=== PATIENT | male | born 1945 | race Caucasian/White ===

== ENCOUNTER 2016-12-16 12:35 | Emergency (ER) | payer MEDICARE ==
[~2016-12-16] VITALS: Ht 180.3 cm; Wt 82.3 kg
--- OUTSIDE RECORDS SUMMARY | 2016-12-16 12:44 | XMS REPORT | Continuity of Care Document ---
Author Author [facility] Organization [facility] Address Unknown Phone Unavailable Allergies Active Description Code Type Severity Reaction Onset Reported/Identified Relationship to Patient Clinical Status Yes No Known Allergies 392020 3 N/A N/A Medications Problems Date Dx Coded Attending Type Code Diagnosis Diagnosed By 10/20/2015 AJITH SOOD, RITO Stephens Ot 729.81 10/26/2015 Patricia SOOD, Gregory Tapia Ot S69.81XA 10/26/2015 Patricia SOOD, Gregory Tapia Ot W20.8XXA 11/29/2015 Patricia SOOD, Gregory V Ot S69.81XA 11/29/2015 Patricia SOOD, Gregory V Ot W20.8XXA 06/21/2016 W M25.561 Acute pain of right knee Procedures Code [place] [address] X-RAY EXAM KNEE 4 OR MORE 06/21/2016 Results Encounters ACCT No. Visit Date/Time Discharge Status Pt. Type Provider Facility Loc./Unit Complaint [id number] 03/15/2013 13:26:00 2012 15:15:00 DIS Emergency Paulino SOOD, [facility] W[facility]EDS
[2016-12-16] MEDS ORDERED: LIDOCAINE 1% (XYLOCAINE) 10 ML VIAL INJ ONE (12:55)
[2016-12-16] MEDS ORDERED: methylPREDNISolone 80 MG/ML (DEPO MEDROL) VIAL IM ONE (12:55)
[2016-12-16] MEDS ORDERED: LIDOCAINE 1% (XYLOCAINE) 20 ML VIAL ONE (12:57)
[2016-12-16] MEDS ORDERED: LIDOCAINE 1% (XYLOCAINE) 20 ML VIAL INJ ONE (13:05)
[2016-12-16] MEDS ORDERED: NAPR500T3 PO (13:30)
[2016-12-16] MEDS ORDERED: ASP81CT PO (13:31)
[2016-12-16] MEDS ORDERED: SMV10T PO (13:31)
[2016-12-16] MEDS ORDERED: METF500T4 PO (13:31)
[2016-12-16] MEDS ORDERED: MELO-255 PO (13:31)
[2016-12-16 13:36] VITALS: BP 130/75
--- NOTE | 2016-12-16 13:52 | Diagnostic Imaging Report ---
INDICATION: Right hip pain. No trauma. COMPARISON: None available. TECHNIQUE: AP and frog-leg lateral views of the right hip. FINDINGS: There is no acute fracture or traumatic malalignment. Mild degenerative changes of the right hip characterized by superior joint space narrowing and marginal osteophytes in the acetabulum. Normal femoral head and neck offset. No acetabular retroversion. Left obturator ring is intact. IMPRESSION: 1. No acute osseous abnormality of the right hip. 2. Mild osteoarthritis of the right hip. Dictated by: Dictated on workstation # [id number]
== END 2016-12-16 13:37 | disposition home or self-care (01) ==
LOC: EDUNIT# 12:35 → ED 12:40
DX: M70.71 Other bursitis of hip, right hip (principal)
CPT/HCPCS: 73502; 96372; 99282; J1040; 99283

== ENCOUNTER 2016-12-17 13:51 | Emergency (ER) | payer MEDICARE ==
[~2016-12-17] VITALS: Ht 180.3 cm; Wt 81.0 kg
[~2016-12-17 13:51] MED LIST: ASP81CT PO; MELO-255 PO; METF500T4 PO; NAPR500T3 PO; SMV10T PO
--- OUTSIDE RECORDS SUMMARY | 2016-12-17 13:56 | XMS REPORT | Continuity of Care Document ---
Author Author [facility] Organization [facility] Address Unknown Phone Unavailable Allergies Active Description Code Type Severity Reaction Onset Reported/Identified Relationship to Patient Clinical Status Yes No Known Allergies [id number] 3 N/A N/A Medications Problems Date Dx [...] Procedures Code Description [place] [address] X-RAY EXAM KNEE 4 OR MORE 06/21/2016 Results Encounters ACCT No. Visit Date/Time Discharge Status Pt. Type Provider Facility Loc./Unit Complaint [id number] 03/15/2013 13:26:00 2012 15:15:00 DIS Emergency Paulino SOOD, [facility] W.EDS
--- OUTSIDE RECORDS SUMMARY | 2016-12-17 13:57 | XMS REPORT | Continuity of Care Document ---
Author Author [facility] Organization [facility] Address Unknown Phone Unavailable Allergies Active Description Code Type Severity Reaction Onset Reported/Identified Relationship to Patient Clinical Status Yes No Known Allergies [id number] 3 N/A N/A Medications Problems Date Dx [...] Procedures Code Description [place] [address] X-RAY EXAM KNEE 4 OR MORE 06/21/2016 Results Encounters ACCT No. Visit Date/Time Discharge Status Pt. Type Provider Facility Loc./Unit Complaint [id number] 03/15/2013 13:26:00 2012 15:15:00 DIS Emergency Paulino SOOD, [facility] W.EDS
[2016-12-17 16:19] VITALS: BP 128/82
== END 2016-12-17 16:15 | disposition home or self-care (01) ==
LOC: ED 13:53
DX: M70.61 Trochanteric bursitis, right hip (principal)
CPT/HCPCS: 99281; 99282